=== PATIENT | male | born 1970 | race Caucasian/White ===

== ENCOUNTER 2017-01-17 08:58 | Emergency (ER) | payer BC ==
--- NOTE | ~2017-01-17 | CT2 ---
[facility] A Service of [facility] RADIOLOGY TEXT RESULTS PATIENT: CECE MARIE LOCATION: SED : 70 UNIT #: [id number] AGE: [address]: Kimberly Jacob APRN SEX: M ORDER DR: [id number] [address] [address] [id number] E MR#: [id number] Acc #: [id number] NAME: CECE MARIE : 1970 SEX: M STUDY DATE/TIME: 01/17/2017 13:36 UNIT: SED ROOM: STUDY DESCRIPTION: CT Abd and Pelv W Cont Attending Physician: Kimberly Jacob A.P.R.N. Ordering Physician: Kimberly Ledbetter A.P.R.N. Primary Care Physician: Sofia Soriano M.D. MEDICAL IMAGING REPORT This report is preliminary unless electronic signature is present. EXAM Abdomen and pelvis CT with contrast, 01/17/2017 INDICATION 46-year-old male with fever and body aches for 3 days, hypertension. History of hernia repair. TECHNIQUE Contrast-enhanced abdomen and pelvis CT was performed. This CT exam was performed with one or more of the following radiation dose reduction techniques: automatic exposure control, adjustment of mA and/or kV according to patient size, and iterative reconstruction. COMPARISON We have no comparison studies. FINDINGS CT ABDOMEN: There is some minimal atelectasis or scarring in the lung bases. No effusion. Aorta demonstrates no aneurysm or dissection. Spleen and adrenal glands are unremarkable. Kidneys are normal. There is abnormal stranding in the pancreaticoduodenal groove and the nidus for the inflammatory change appears to be in the gallbladder fossa with fluid tracking from the gallbladder fossa into the pancreaticoduodenal groove and inferior right mesentery and right pericolic gutter. Findings are suspicious for acute cholecystitis. Differential technically also includes the possibility of duodenitis or less likely pancreatitis and correlation with laboratory data including amylase and lipase levels would be recommended. There is mildly heterogeneous enhancement of the liver and the possibility of hepatitis is also in the differential. There is no intra or extrahepatic biliary ductal dilatation. No adenopathy or drainable fluid collection. [facility]. [facility] A Service of [facility] RADIOLOGY TEXT RESULTS PATIENT: CECE MARIE LOCATION: [place] : [birth year] UNIT #: [id number] AGE: [address]: Kimberly Jcaob PATIENT'S LIBRARIAN SEX: M ORDER DR: CT PELVIS: Bladder unremarkable. Prostate within normal limits. No drainable fluid collection in the pelvis. Bowel demonstrates no obstruction or focal inflammatory change. Appendix normal. There is a left inguinal hernia that contains fat only. Tiny umbilical hernia containing fat present. There is no suspicious bone lesion. IMPRESSION 1. There is inflammatory change in the right upper quadrant with the nidus appearing to be arising from the gallbladder fossa. Small amount of fluid tracking from the mesentery into the right pericolic gutter. Imaging features are suspicious for acute cholecystitis. Differential also includes the possibility of cholangitis, hepatitis, duodenitis or less likely acute pancreatitis. No drainable fluid collection at this time. No intra or extrahepatic biliary ductal dilatation. 2. The appendix is normal. There is no bowel obstruction. 3. Fat-containing umbilical and inguinal hernias as described. STAT * RESULT Dictated by... Eyad Lopez M.D. THIS IS AN ELECTRONICALLY VERIFIED REPORT Eyad Lopez M.D. at 01/17/2017 4:25 PM [place] TD: 01/17/2017 14:41 JOB #: [id number] MEDICAL IMAGING REPORT Page 1 of 1
[2017-01-17] MEDS ORDERED: LOSARTAN POTASS50 MG PO (09:09)
[2017-01-17] MEDS ORDERED: PRILOSEC10 M1 (09:09)
[2017-01-17 10:37] LABS: BASOPHIL% 1.1 % (0-2.5); EOSINOPHIL# 0.3 X10e3 (0-0.7); EOSINOPHIL% 7.6 % (0.0-7.0); HEMOGLOBIN 15.2 gm/dL (13.0-16.0); LYMPHOCYTE# 0.4 X10e3 (1.0-3.5); LYMPHOCYTE% 8.7 % (17.0-45.0); MEAN CORPUSCULAR HEMOGLOBIN 31.1 PG (28-34); MEAN CORPUSCULAR HGB CONC 33.8 g/dL (30-36); MEAN PLATELET VOLUME 8.4 FL (6.5-11.5); MONOCYTE# 0.5 X10e3 (0-1.0); MONOCYTE% 10.9 % (3.0-12.0); NEUTROPHIL# 3.2 X10e3 (1.5-7.1); NEUTROPHIL% 71.7 % (40-75); PLATELET COUNT 168 X10e3 (140-420); RED BLOOD COUNT 4.89 X10e (3.90-5.60); RED CELL DISTRIBUTION WIDTH 13.2 % (11.0-15.5); WHITE BLOOD COUNT 4.4 X10e3 (4.0-10.5)
[2017-01-17 10:38] LABS: DIFF IND NO
[2017-01-17 10:46] LABS: INFLUENZA A NEG (NEG); INFLUENZA B NEG (NEG)
[2017-01-17 10:47] LABS: URINE SOURCE CLEAN CATCH
[2017-01-17 10:49] LABS: URINE APPEARANCE CLEAR; URINE BILIRUBIN POS (NEG); URINE BLOOD NEG (NEG); URINE COLOR AMBER; URINE KETONE 1+ (NEG); URINE LEUKOCYTE ESTERASE NEG (NEG); URINE NITRATE NEG (NEG); URINE PROTEIN TRACE (NEG); URINE SPECIFIC GRAVITY 1.015 (1.003-1.035); URINE UROBILINOGEN >=8.0 MG/DL (NORM)
[2017-01-17 10:58] LABS: MICRO INDICATED? NO; URINE GLUCOSE 50 MG/DL (NORM)
[2017-01-17 11:40] LABS: ALBUMIN SERUM 3.9 g/dL (3.5-5.0); BILIRUBIN, DIRECT 2.1 mg/dL (0.0-0.2); BILIRUBIN,INDIRECT 1.7 mg/dL (0.0-0.9); BILIRUBIN,TOTAL 3.8 mg/dL (0.2-2.0); CALCIUM SERUM 8.3 mg/dL (8.4-10.2); GLOM FILT RATE Estimated 89.9 mL/min (>60); POTASSIUM 3.9 mmol/L (3.5-5.1)
[2017-01-17 12:08] LABS: AMYLASE 11 U/L (0-46); LIPASE 29 U/L (22-51)
== END 2017-01-17 18:34 ==
LOC: SED 08:58
PROVIDERS: Nurse Practitioner
DX: K85.90 Acute pancreatitis without necrosis or infection, unspecified (principal); K80.50 Calculus of bile duct without cholangitis or cholecystitis without obstruction; I10 Essential (primary) hypertension; K21.9 Gastro-esophageal reflux disease without esophagitis; Z98.890 Other specified postprocedural states; Z79.899 Other long term (current) drug therapy
CPT/HCPCS: 36415; 74177; 80048; 80076; 81003; 82150; 83690; 85025; 87804; 96374; 96375; 99284; J2270; J2405; Q9967